=== PATIENT | male | born 1935 | race Caucasian/White ===

== ENCOUNTER 2020-10-30 11:22 | Emergency (ER) | payer MEDICARE, BC, SELFPAY ==
--- NOTE | ~2020-10-30 | XR_ITS ---
EXAMINATION: XR chest 1V CLINICAL INFORMATION: Reason for Exam dyspnea COMPARISON: None TECHNIQUE: XR chest 1V Tubes and lines: None Lungs and pleura: Mild infiltrate at left lower lobe. Heart and mediastinum: The mediastinum is within normal limits.. Bones/soft tissue: Skeletal structures included are normal for patient's age. XR/XR chest 1V IMPRESSION: Mild interstitial infiltrate left lower lobe.
[2020-10-30 11:31] VITALS: BP 162/85; PULSE 83; RESP 20; TEMP 37.7; O2SAT 93; BMI 37.4
--- NOTE | 2020-10-30 11:51 | ECG_ITS ---
Test Reason : UPPER RESPIRATORY Blood Pressure : / mmHG Vent. Rate : 069 BPM Atrial Rate : 069 BPM P-R Int : 158 ms QRS Dur : 154 ms QT Int : 428 ms P-R-T Axes : 000 -86 017 degrees QTc Int : 458 ms Atrial fibrillation Right bundle branch block Left anterior fascicular block Bifascicular block Abnormal ECG No previous ECGs available Referred By: Sindy Mendez Electronically Signed By:POORNIMA ESPINOZA
--- NOTE | 2020-10-30 11:54 | ED_ITS ---
HPI - URI/Sore Throat General Chief Complaint: Upper Respiratory Symptoms Stated Complaint: covid + , fatigue, body ache Time Seen by Provider: 10/30/20 11:50 Source: patient Mode of arrival: ambulatory Limitations: no limitations History of Present Illness HPI Narrative: patient is unvaccinated MD elicited complaint: fever, cough, rhinorrhea and nasal congestion Onset (ago): day(s) (3) Consistency: constant and progressively worsening Severity: moderate Description of mucous: clear Able to tolerate fluids by mouth: Yes Exacerbating factors: exertion Relieving factors: nothing Context: other (went to [facility] today COVID positive) Associated symptoms: chills, myalgias, rhinorrhea, nasal congestion, cough and shortness of breath Treatments prior to arrival: none Related Data Previous Rx's Medication Instructions Recorded apixaban 5 mg tablet (Eliquis) 5 mg PO BID #60 tab 10/30/20 azithromycin 500 mg tablet See Rx Instructions .ROUTE 10/30/20 .COMPLEX #6 tab Allergies Allergy/AdvReac Type Severity Reaction Status Date / Time No Known Allergies Allergy Unverified 11/26/19 15:55 [No Known Allergies*] Review of Systems Review of Systems: Constitutional : No Weight loss, No Fever, pos Chills, pos Fatigue, pos Malaise ENT/Mouth : No sore throat, No Rhinorrhea Eyes: No Eye Pain, No Swelling, No Redness Cardiovascular : No Chest Pain, pos SOB, pos Dyspnea on Exertion, No Orthopnea, No Edema, No Palpitations Respiratory : pos Cough, pos Sputum, No Wheezing Gastrointestinal : No Nausea, No Vomiting, No Diarrhea, No Constipation, No ab dominal Pain, No Hematochezia, No Melena Genitourinary : No Dysuria, No Urinary Frequency, No Hematuria, Musculoskeletal : No joint pain, No Myalgias, No Joint Swelling Skin : No Skin Lesions, No rash Neuro : No Weakness, No Numbness, No Dizziness, No Headache Psych : No Anxiety/Panic, No Depression Heme/Lymph: No Bruising, No Bleeding,No Lymphadenopathy Endocrine : No Polyuria, No Polydipsia All other systems reviewed and are negative [facility] Past Medical History Medical History (Updated 10/30/20 @ 14:10 by Sindy Mendez DO) HTN (hypertension) Stroke Social History Social History (Updated 10/30/20 @ 12:08 by Sindy Mendez DO) Patient Tobacco Use Status: Never used Tobacco Advance Directives: No Advance Directives Information Provided: No Physical Exam Vital Signs: Vital Signs: Last Vital Signs Temp 100.2 F 10/30/20 14:05 Pulse 60 10/30/20 14:05 Resp 22 H 10/30/20 14:05 BP 136/71 10/30/20 14:05 Pulse Ox 94 10/30/20 14:48 Body Mass Index 37.4 Appearance: Alert. Oriented X3. No acute distress. Eyes: Pupils equal, round and reactive to light. ENT: Pharynx normal. Neck: Normal inspection. Neck supple. CVS: Normal heart rate and rhythm. Pulses normal. Respiratory: No respiratory distress. Breath sounds with some rhonchi, coarse cough noted Abdomen: Soft and nontender. Skin: Skin warm and dry. Normal skin color. Normal skin turgor. Extremities: No lower extremity edema. No calf ttp Neuro: Oriented X 3. No motor deficit. No sensory deficit. Course Course Course Narrative: possible monoclonal antibody treatments at [facility] [place]m involved, new onset afib no CP he is rate controlled and already on ASA / Plavix - does not know if he has prior afib his best bet with afib might be monoclonal treatments given he is not O2 dependent at this time, pending call back from pulmonology to see if they can treat him [facility] [place] closed, repeat troponin pending, plan to possibly observe or hold in order to get patient appointment if he does not need O2 lowest O2 sat 94% on RA with ambulation trial, has not needed O2 plan to call [facility] [place] for monoclonal therapy , Case management consult also ordered , other contact is daughter Jelena [phone] [facility] number trop not above delta, will start him on eliquis given chadsvasc 5 - the patient denies any bloody or black stools no prior issues with bleeding MDM - URI/Sore Throat MDM Narrative Medical decision making narrative: 85 yo male with HTN, prior stroke, has not felt well since Saturday c/o URI symptoms tested positive at [facility] for COVID. He is not vaccinated. At this time will obtain labs, CXR, monitor O2 sats with ambulation trial. The patient is suprised there is no medication to fix this. Lab Data Result diagrams: 10/30/20 13:02 10/30/20 13:02 Labs: Lab Results 10/30/20 10/30/20 10/30/20 Range/Units 13:02 13:02 13:02 WBC 4.6 L (4.8-10.8) X10*3/uL RBC 5.01 (4.60-5.80) X10*6/uL Hgb 15.8 (14.0-18.0) g/dl Hct 45.8 (42-52) % MCV 91.4 (80-98) fL MCH 31.5 (27.0-33.0) pg MCHC 34.5 (31.0-36.0) g/dl RDW 13.2 (11.0-16.0) % Plt Count 112 L (160-400) X10*3/uL MPV 9.2 L (9.4-12.4) fL Immature Gran % (Auto) 0.2 (0.0-0.4) % Neut % (Auto) 83.0 H (45-73) % Lymph % (Auto) 8.3 L (20-40) % [place] % (Auto) 8.5 (2-11) % Eos % (Auto) 0.0 (0-4) % Baso % (Auto) 0.0 (0-2) % Lymph # (Auto) 0.4 L (1.2-4.9) X10*3/uL [place] # (Auto) 0.4 (0.1-1.2) X10*3/uL Eos # (Auto) 0.0 (0.0-0.4) X10*3/uL Baso # (Auto) 0.0 (0.0-0.2) X10*3/uL Abs Immat Gran (auto) 0.01 (0.00-0.03) X10*3/uL Absolute Neuts (auto) 3.8 (2.0-8.3) X10*3/uL Absolute Nucleated RBC 0.000 (0.0-0.012) X10*3/uL Nucleated RBC % (auto) 0.0 (0.0-0.2) /100WBC D-Dimer 229 NG/ML Sodium 137 (135-145) mmol/L Potassium 4.0 (3.3-5.1) mmol/L Chloride 96 (96-108) mmol/L Carbon Dioxide 30 H (22-29) mmol/L Anion Gap 15 (12-20) BUN 15 (9-16) mg/dL Creatinine 1.00 (0.5-1.4) mg/dL Estim Creat Clear Calc 75.9 Estimated GFR > 60 Random Glucose 103 (60-115) mg/dL Lactic Acid (0.5-2.0) mmol/L Calcium 9.2 (8.4-10.2) mg/dL Magnesium 2.0 (1.6-2.6) mg/dL Ferritin 1073 H (20-250) ng/mL Total Bilirubin 0.7 (0.0-1.0) mg/dL Direct Bilirubin 0.3 (0.0-0.5) mg/dL AST 43 H (5-37) U/L ALT 26 (0-40) U/L Alkaline Phosphatase 68 (39-117) U/L Lactate Dehydrogenase 278 H (118-273) U/L Total Creatine Kinase 397 H (38-174) U/L Troponin I High Sens (<3.5-35.0) ng/L C-Reactive Protein 2.41 H (< or = 0.50) mg/dL B-Natriuretic Peptide (<100) pg/mL Total Protein 7.2 (6.5-8.0) g/dL Albumin 4.4 (3.5-5.0) g/dL Procalcitonin ng/mL COVID-19 (SCAR) (Negative) COVID-19 Clin Com 10/30/20 10/30/20 10/30/20 Range/Units 13:02 13:02 13:02 WBC (4.8-10.8) X10*3/uL RBC (4.60-5.80) X10*6/uL Hgb (14.0-18.0) g/dl Hct (42-52) % MCV (80-98) fL MCH (27.0-33.0) pg MCHC (31.0-36.0) g/dl RDW (11.0-16.0) % Plt Count (160-400) X10*3/uL MPV (9.4-12.4) fL Immature Gran % (Auto) (0.0-0.4) % Neut % (Auto) (45-73) % Lymph % (Auto) (20-40) % [place] % (Auto) (2-11) % Eos % (Auto) (0-4) % Baso % (Auto) (0-2) % Lymph # (Auto) (1.2-4.9) X10*3/uL [place] # (Auto) (0.1-1.2) X10*3/uL Eos # (Auto) (0.0-0.4) X10*3/uL Baso # (Auto) (0.0-0.2) X10*3/uL Abs Immat Gran (auto) (0.00-0.03) X10*3/uL Absolute Neuts (auto) (2.0-8.3) X10*3/uL Absolute Nucleated RBC (0.0-0.012) X10*3/uL Nucleated RBC % (auto) (0.0-0.2) /100WBC D-Dimer NG/ML Sodium (135-145) mmol/L Potassium (3.3-5.1) mmol/L Chloride (96-108) mmol/L Carbon Dioxide (22-29) mmol/L Anion Gap (12-20) BUN (9-16) mg/dL Creatinine (0.5-1.4) mg/dL Estim Creat Clear Calc Estimated GFR Random Glucose (60-115) mg/dL Lactic Acid 1.2 (0.5-2.0) mmol/L Calcium (8.4-10.2) mg/dL Magnesium (1.6-2.6) mg/dL Ferritin (20-250) ng/mL Total Bilirubin (0.0-1.0) mg/dL Direct Bilirubin (0.0-0.5) mg/dL AST (5-37) U/L ALT (0-40) U/L Alkaline Phosphatase (39-117) U/L Lactate Dehydrogenase (118-273) U/L Total Creatine Kinase (38-174) U/L Troponin I High Sens 37.7 H* (<3.5-35.0) ng/L C-Reactive Protein (< or = 0.50) mg/dL B-Natriuretic Peptide 88 (<100) pg/mL Total Protein (6.5-8.0) g/dL Albumin (3.5-5.0) g/dL Procalcitonin 0.03 ng/mL COVID-19 (SCAR) (Negative) COVID-19 Clin Com 10/30/20 10/30/20 Range/Units 13:02 15:52 WBC (4.8-10.8) X10*3/uL RBC (4.60-5.80) X10*6/uL Hgb (14.0-18.0) g/dl Hct (42-52) % MCV (80-98) fL MCH (27.0-33.0) pg MCHC (31.0-36.0) g/dl RDW (11.0-16.0) % Plt Count (160-400) X10*3/uL MPV (9.4-12.4) fL Immature Gran % (Auto) (0.0-0.4) % Neut % (Auto) (45-73) % Lymph % (Auto) (20-40) % [place] % (Auto) (2-11) % Eos % (Auto) (0-4) % Baso % (Auto) (0-2) % Lymph # (Auto) (1.2-4.9) X10*3/uL [place] # (Auto) (0.1-1.2) X10*3/uL Eos # (Auto) (0.0-0.4) X10*3/uL Baso # (Auto) (0.0-0.2) X10*3/uL Abs Immat Gran (auto) (0.00-0.03) X10*3/uL Absolute Neuts (auto) (2.0-8.3) X10*3/uL Absolute Nucleated RBC (0.0-0.012) X10*3/uL Nucleated RBC % (auto) (0.0-0.2) /100WBC D-Dimer NG/ML Sodium (135-145) mmol/L Potassium (3.3-5.1) mmol/L Chloride (96-108) mmol/L Carbon Dioxide (22-29) mmol/L Anion Gap (12-20) BUN (9-16) mg/dL Creatinine (0.5-1.4) mg/dL Estim Creat Clear Calc Estimated GFR Random Glucose (60-115) mg/dL Lactic Acid (0.5-2.0) mmol/L Calcium (8.4-10.2) mg/dL Magnesium (1.6-2.6) mg/dL Ferritin (20-250) ng/mL Total Bilirubin (0.0-1.0) mg/dL Direct Bilirubin (0.0-0.5) mg/dL AST (5-37) U/L ALT (0-40) U/L Alkaline Phosphatase (39-117) U/L Lactate Dehydrogenase (118-273) U/L Total Creatine Kinase (38-174) U/L Troponin I High Sens 51.7 H* (<3.5-35.0) ng/L C-Reactive Protein (< or = 0.50) mg/dL B-Natriuretic Peptide (<100) pg/mL Total Protein (6.5-8.0) g/dL Albumin (3.5-5.0) g/dL Procalcitonin ng/mL COVID-19 (SCAR) Positive A (Negative) COVID-19 Clin Com See Note ECG Data Attestation: I personally reviewed and interpreted this ECG as follows: ECG interpretation date: 10/30/20 ECG interpretation time: 13:13 Interpretation: Rate: 65 Rhythm: afib [place]: left Normal P waves. Normal THOMAS. RBBB ST T wave : no SUNNY, normal qTC: normal prior studies: no prior The study has been interpreted contemporaneously by me. . Discharge Plan Discharge Clinical Impression: COVID-19 Atrial fibrillation Qualifiers: Atrial fibrillation type: unspecified Qualified Code(s): I48.91 - Unspecified atrial fibrillation Patient Disposition: Home, Self-Care Instructions: A-fib (Atrial Fibrillation) (ED), COVID-19 (Coronavirus Disease 2019) (ED) Additional Instructions: STOP ASPIRIN AND PLAVIX I will call you tomorrow to set up treatment at [facility] Monoclonal Antibody [facility] if you become very short of breath please come back to the ED Prescriptions: New azithromycin 500 mg tablet See Rx Instructions .ROUTE .COMPLEX Qty: 6 RF: 0 Eliquis 5 mg tablet 5 mg PO BID Qty: 60 RF: 0 Referrals: Joselito Reynoso [Primary Care Provider] - 1 week (after COVID care completed. Will need workup for atrial fibrillation )
[2020-10-30 13:11] LABS: MANUAL DIFF FLAG NO
--- NOTE | 2020-10-30 13:13 | ECG_ITS ---
Test Reason : REPEAT Blood Pressure : / mmHG Vent. Rate : 065 BPM Atrial Rate : 326 BPM P-R Int : 000 ms QRS Dur : 148 ms QT Int : 420 ms P-R-T Axes : 000 -80 029 degrees QTc Int : 436 ms Atrial fibrillation Right bundle branch block Left anterior fascicular block Bifascicular block Abnormal ECG When compared with ECG of 30-OCT-2020 12:46, No significant change was found Referred By: Sindy Mendez Electronically Signed By:POORNIMA ESPINOZA
[2020-10-30 13:19] LABS: Hematocrit 45.8 % (42-52); Hemoglobin 15.8 g/dl (14.0-18.0); Imm Gran Abs Auto 0.01 X10*3/uL (0.00-0.03); Imm Gran Pct Auto 0.2 % (0.0-0.4); Lymphocytes Absolute Auto 0.4 X10*3/uL (1.2-4.9); Lymphocytes Percent Auto 8.3 % (20-40); Mean Corpuscular HGB Conc 34.5 g/dl (31.0-36.0); Mean Corpuscular Hemoglobin 31.5 pg (27.0-33.0); Mean Corpuscular Volume 91.4 fL (80-98); Mean Platelet Volume 9.2 fL (9.4-12.4); Monocytes Absolute Auto 0.4 X10*3/uL (0.1-1.2); Monocytes Percent Auto 8.5 % (2-11); Neutrophils Absolute Auto 3.8 X10*3/uL (2.0-8.3); Platelet Count 112 X10*3/uL (160-400); Red Blood Count 5.01 X10*6/uL (4.60-5.80); Red Cell Distribution Width 13.2 % (11.0-16.0); White Blood Count 4.6 X10*3/uL (4.8-10.8)
[2020-10-30 13:23] LABS: COVID-19 Test Positive (Negative)
[2020-10-30 13:29] LABS: D Dimer 229 NG/ML
[2020-10-30] MEDS: Acetaminophen 325 MG TABLET 650 MG PO (13:29)
[2020-10-30] MEDS: dexAMETHasone sod phosphate 4 MG/ML VIAL 6 MG IVPUSH (13:29)
[2020-10-30 13:35] LABS: Lactic Acid 1.2 mmol/L (0.5-2.0)
[2020-10-30 13:43] LABS: Alanine Aminotransferase 26 U/L (0-40); Albumin Level 4.4 g/dL (3.5-5.0); Alkaline Phosphatase 68 U/L (39-117); Anion Gap 15 (12-20); Aspartate Amino Transferase 43 U/L (5-37); Bilirubin Direct 0.3 mg/dL (0.0-0.5); Bilirubin Total 0.7 mg/dL (0.0-1.0); Blood Urea Nitrogen 15 mg/dL (9-16); C Reactive Protein 2.41 mg/dL (< or = 0.50); Calcium 9.2 mg/dL (8.4-10.2); Carbon Dioxide 30 mmol/L (22-29); Chloride 96 mmol/L (96-108); Creatinine Clr Calc Pharmacy 75.9; Estimated Glomerular Filt Rate > 60; Glucose Random 103 mg/dL (60-115); Lactate Dehydrogenase 278 U/L (118-273); Sodium 137 mmol/L (135-145); Total Protein 7.2 g/dL (6.5-8.0)
[2020-10-30 13:44] LABS: B Type Natriuretic Peptide 88 pg/mL (<100); Troponin-I High Sensitivity 37.7 ng/L (<3.5-35.0)
[2020-10-30 13:59] LABS: Procalcitonin 0.03 ng/mL
[2020-10-30 14:00] LABS: Ferritin 1073 ng/mL (20-250)
[2020-10-30 14:05] VITALS: BP 136/71; PULSE 60; RESP 22; TEMP 37.9; O2SAT 93
[2020-10-30 14:48] VITALS: O2SAT 94
[2020-10-30 16:30] LABS: Troponin-I High Sensitivity 51.7 ng/L (<3.5-35.0)
[2020-10-30 19:14] VITALS: BP 137/72; PULSE 58; RESP 18; O2SAT 94
[2020-10-30] MEDS: Apixaban 5 MG TABLET PO (19:15)
--- NOTE | 2020-10-30 19:43 | PC.NURSE ---
DAUGHTER HAS BEEN IN WR READY TO TAKE PT HOME ONCE READY FOR DISCHARGE. INSTRUCTIONS EXPLAINED TO BOTH PT AND DAUGHTER. DAUGHTER TESTED NEGATIVE TODAY, SHE DID HAVE VACCINE X 2. BOTH UNDERSTAND TO SET UP APPT AT [facility] FOR ANTIBODY TREATMENT, THEY WILL RECEIVE A CALL. STOP TAKING ASA AND PLAVIX, START TAKING ELIQUIS AND AZITHROMYCIN. RETURN TO THE ER FOR INCREASED DYSPNEA. RECOMMEND AN SPO2 MONITOR TO MEASURE SPO2, RETURN IF BELOW 90%.
== END 2020-10-30 19:47 | disposition home or self-care (01) ==
PROVIDERS: Emergency Provider Emergency Medicine; PCP Hospitalist
DX: U07.1 COVID-19 (principal); M79.10 Myalgia, unspecified site; R05 Cough; I48.91 Unspecified atrial fibrillation; I10 Essential (primary) hypertension; Z79.899 Other long term (current) drug therapy
CPT/HCPCS: 36415; 71045; 80048; 80076; 82550; 82728; 83605; 83615; 83735; 83880; 84145; 84484; 85025; 85379; 86140; 87040; 87635; 93005; 96374; 99284; J1100

== ENCOUNTER 2024-09-22 06:48 | Inpatient (IN) | payer MEDICARE, BC, SELFPAY ==
[2024-09-22] VITALS (14 sets, daily range): BP systolic 105–181; BP diastolic 38–99; PULSE 32–65; RESP 14–20; TEMP 36.2–36.9; O2SAT 93–98; BMI 36.9
--- NOTE | ~2024-09-22 | XR_ITS ---
EXAMINATION: XR CHEST CLINICAL INFORMATION: dizzy COMPARISON: October 30, 2020 TECHNIQUE: Frontal view of the chest was obtained. FINDINGS: No focal lung consolidation or evidence of pulmonary edema. Cardiomediastinal silhouette is within normal limits. Osseous structures appear intact. XR/XR chest 1V IMPRESSION: No acute cardiopulmonary process. Electronically signed by: Nelida Arredondo MD 09/22/2024 07:48 AM EDT
--- NOTE | ~2024-09-22 | XR_ITS ---
EXAMINATION: XR CHEST CLINICAL INFORMATION: s/p pacemaker implant. R/o pneumothorax. COMPARISON: Prior day. TECHNIQUE: Frontal view of the chest was obtained. FINDINGS: Left-sided dual-lead pacemaker has been placed. Leads are seen in the right atrium and right ventricle. There is mild cardiac enlargement. Mediastinal and hilar contours are normal. The lungs are clear bilaterally. No pneumothorax or effusion. No focal osseous or soft tissue abnormality. XR/XR chest 1V IMPRESSION: 1. Placement of left-sided dual-lead pacer. No pneumothorax. 2. Mild cardiac enlargement. 3. No active pulmonary disease. Electronically signed by: Amandeep Borges MD 09/23/2024 04:01 PM EDT
--- NOTE | 2024-09-22 07:01 | ECG_ITS ---
Test Reason : dizziness Blood Pressure : */* mmHG Vent. Rate : 53 BPM Atrial Rate : * BPM P-R Int : * ms QRS Dur : 160 ms QT Int : 448 ms P-R-T Axes : * -75 58 degrees QTcB Int : 420 ms Atrial fibrillation with slow ventricular response Right bundle branch block Left anterior fascicular block Bifascicular block Abnormal ECG When compared with ECG of 30-Oct-2020 13:05, No significant change was found Referred By: Generic ED Physician Electronically Signed By: CINDY BROWN
[2024-09-22 07:32] LABS: MANUAL DIFF FLAG NO
[2024-09-22 07:33] LABS: Hematocrit 45.7 % (42.0-52.0); Hemoglobin 15.7 g/dl (14.0-18.0); Imm Gran Abs Auto 0.01 X10*3/uL (0.00-0.03); Imm Gran Pct Auto 0.2 % (0.0-0.4); Lymphocytes Absolute Auto 1.0 X10*3/uL (1.2-4.9); Mean Corpuscular HGB Conc 34.4 g/dl (31.0-36.0); Mean Corpuscular Hemoglobin 31.8 pg (27.0-33.0); Mean Corpuscular Volume 92.7 fL (80.0-98.0); NRBC Abs Auto 0.000 X10*3/uL (0.0-0.012); NRBC Pct Auto 0.0 /100WBC (0.0-0.2); Platelet Count 145 X10*3/uL (160-400); Red Blood Count 4.93 X10*6/uL (4.60-5.80); White Blood Count 6.2 X10*3/uL (4.8-10.8)
[2024-09-22 07:35] LABS: Appearance Urine Clear; Glucose Urine UA Negative (Negative); PH 5.0 (5.0-9.0); Specific Gravity - Urine 1.020 (1.005-1.025)
[2024-09-22 07:43] LABS: INTERNATIONAL NORM RATIO 1.3 (0.9-1.1); Prothrombin Time 14.4 SEC (10.9-12.4)
[2024-09-22 07:50] LABS: Alanine Aminotransferase 26 U/L (0-40); Albumin Level 4.3 g/dL (3.5-5.0); Alkaline Phosphatase 68 U/L (39-117); Anion Gap 14 (12-20); Aspartate Amino Transferase 35 U/L (5-37); Blood Urea Nitrogen 20 mg/dL (9-16); Calcium 9.3 mg/dL (8.4-10.2); Carbon Dioxide 23 mmol/L (22-29); Chloride 108 mmol/L (96-108); Creatinine Clr Calc Pharmacy 64.1; Estimated Glomerular Filt Rate > 60; Potassium 4.3 mmol/L (3.3-5.1); Sodium 141 mmol/L (135-145); Total Protein 6.7 g/dL (6.5-8.0)
[2024-09-22 07:57] LABS: Troponin-I High Sensitivity 19.4 ng/L (<3.5-35.0)
--- NOTE | 2024-09-22 08:02 | PC.NURSE ---
pt is alert and oriented, skin appropriate for ethnicity, respirations even and unlabored, ls clear, pt denies felling dizzy or chest pain at this time, lower extremities swollen/elephant like- which according to the pt that is his baseline, pt reports that around 0600 went to [facility] picked up a couple of bags of mulch then put them in his truck started to drive away and what the pt reports that his vision started to get tunnel vision/and kept getting darker and darker and felt like he was going to pass out, the pt pulled over and parked his truck and closed his eyes then when he opened them back again the vision slowly got extractions technologist and extractions technologist again, pt states that he is not exactly sure if he totally passed out or not, no viable facial droop, speech clear, hand grasp strong and equal, pt put on the monitor and it was showing a-fib but with slow rate ranging from 50's-low 40's, pt does have hx of a-fib and currently on Eliquis , Bp stable
--- NOTE | 2024-09-22 08:25 | ED.GENADULT ---
HPI - General Adult General Chief complaint: Dizziness Stated complaint: 'blacking out' multiple times Time Seen by Provider: 09/22/24 08:24 History of Present Illness ED Provider: Amie CRANE narrative: The patient is an 89-year-old male with a history of chronic atrial fibrillation who was on apixaban but who was not on any rate control medications. Yesterday the patient had a sense of lightheadedness and near-syncope. The patient has been at [facility]. He had loaded 6 bags of mulch into the back of his pickup truck. The bags may have weight as much as 40 lb. He says that moving the bags did not cause any chest pain or shortness of breath. He says after he got into his truck however he was going to drive when he started to feel like his vision was going dark and he felt as if he might pass out. These symptoms lasted less than a minute and then he recovered. He then finished his trans actions at [facility] and drove home. This morning he decided he should come to the hospital for evaluation of this episode. The patient has never had an episode like this before. He has no history of stroke or IA. no fever, sweats, chills. He has chronic lower extremity edema. His medications are apixaban, levothyroxine, simvastatin, and ramipril. His primary care doctor is Dr. Primo Chicas at [facility]. Related Data Previous Rx's ?Medication ?Instructions ?Recorded apixaban 5 mg tablet (Eliquis) 5 mg PO BID #60 tabs 10/30/20 azithromycin 500 mg tablet See Rx Instructions PO .COMPLEX #6 10/30/20 tabs Allergies Allergy/AdvReac Type Severity Reaction Status Date / Time No Known Allergies (No Known Allergy Unverified 09/22/24 06:59 Allergies*) Review of Systems Review of Systems: Yes all other systems are reviewed and are negative [facility] Past Medical History Medical History (Updated 09/22/24 @ 17:05 by Jon Holloway MD) Stroke HTN (hypertension) Family History Family History (Updated 09/22/24 @ 09:19 by James Mcintosh MD) Father No problems noted. Mother No problems noted. Social History Social History (Updated 10/30/20 @ 12:08 by Brandi Mendez DO) Alcohol intake: current Alcohol intake frequency: a few times a month Patient Tobacco Use Status: Never used Tobacco Smoked in Last 30 Days: No Use of substances other than those prescribed or required for medical reasons: No Advance Directives: No Advance Directives Information Provided: Yes Do you have a plan to hurt others: No Plan Physical Exam ED Vital Signs: Vital Signs - 24 hr 09/22/24 06:55 09/22/24 07:53 09/22/24 07:57 Temperature 97.1 F Pulse Rate 65 41 L Pulse Rate [Monitor] 41 L Respiratory Rate 16 20 Blood Pressure 161/64 H 152/52 H Pulse Oximetry 98 97 Oxygen Delivery Method Room Air Room Air 09/22/24 08:19 09/22/24 08:26 09/22/24 08:27 Temperature Pulse Rate 40 L 41 L 37 L Pulse Rate [Monitor] Respiratory Rate 16 16 Blood Pressure 161/50 H 147/64 H Pulse Oximetry 96 98 Oxygen Delivery Method Room Air Room Air 09/22/24 10:20 09/22/24 10:53 09/22/24 13:00 Temperature 98.5 F Pulse Rate 32 L 44 L 60 Pulse Rate [Monitor] Respiratory Rate 20 16 14 Blood Pressure 159/80 H 181/99 H 169/87 H Pulse Oximetry 96 95 93 Oxygen Delivery Method Room Air Room Air Room Air 09/22/24 14:00 09/22/24 17:46 Temperature 97.9 F Pulse Rate 58 60 Pulse Rate [Monitor] Respiratory Rate 15 Blood Pressure 144/87 H 149/72 H Pulse Oximetry 97 Oxygen Delivery Method Room Air BMI result Body Mass Index 36.9 Const Other: The patient is awake and alert. He has a large 89-year-old male who looks younger than his age. He has significantly edematous lower extremities that look quite chronic. Otherwise he does not seem frail or in distress in any way. Orientation/consciousness: patient oriented x3 HENMT Other: The face is symmetrical. ?Mucous membranes moist. Eyes Other: Pupils are round equal, conjunctivae are clear, extraocular movements intact Neck Neck: Yes normal visual inspection, Yes full ROM and Yes no JVD Resp Effort & Inspection: normal respiratory effort Auscultation: clear to auscultation bilaterally Cardio Other: The patient was bradycardic with a an irregular rate and rhythm. No murmur heard. GI Other: Abdomen is soft and nontender Skin Other: The skin is dry and unremarkable Neuro General: patient oriented x3, gait normal, tone normal, moves all extremities, no focal motor deficits and CN's II-XI intact bilaterally Extrem Other: The patient is fairly thick, chronic looking edema to both lower legs. Medical Decision Making Medical Decision Making [facility] Narrative: The patient is an 89-year-old male with a history of atrial fibrillation. He is on apixaban but he is not on any rate control medications. He has had atrial fibrillation for about 4 years. 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 The patient yesterday had an episode of near-syncope after exerting himself by lifting heavy bags of mulch into his pickup truck at [employer]. The patient had no exertional chest pain or shortness of breath but soon after he finished the exertion he has got into his pickup truck and felt his vision went dark and felt as if he was going to pass out. These symptoms lasted less than a minute. At 1st I thought this had happened early this morning but later his son told me this actually happened yesterday. The patient is in slow AFib at the emergency room here this morning. His blood pressures are stable. My suspicion is that he probably had an episode of significant bradycardia after his exertion yesterday. I consulted Dr. Mcintosh and we agreed that the patient probably needs pacemaker. Dr. Mcintosh contacted [facility] and the patient has been accepted with the plan for transfer to [facility]. We will hold the patient's apixaban. The patient has been bradycardic but hemodynamically stable otherwise. He has looked well and has been asymptomatic. [facility] has accepted the patient in principle but no bed is yet available. The patient will therefore be held in the emergency room until a bed is available for transfer. The accepting physician at [facility] is Dr. Florecita Khoury. At this point the patient will stay in the ED here until a bed is available at [facility]. Lab Data 09/22/24 07:28 09/22/24 07:27 Labs: Lab Results 09/22/24 09/22/24 09/22/24 Range/Units 07: 07:28 09:29 WBC 6.2 (4.8-10.8) X10*3/uL RBC 4.93 (4.60-5.80) X10*6/uL Hgb 15.7 (14.0-18.0) g/dl Hct 45.7 (42.0-52.0) % MCV 92.7 (80.0-98.0) fL MCH 31.8 (27.0-33.0) pg MCHC 34.4 (31.0-36.0) g/dl RDW 13.3 (11.0-16.0) % Plt Count 145 L (160-400) X10*3/uL MPV 9.5 (9.4-12.4) fL Immature Gran % (Auto) 0.2 (0.0-0.4) % Neut % (Auto) 73.0 (45-73) % Lymph % (Auto) 15.3 L (20-40) % [place] % (Auto) 9.7 (2-11) % Eos % (Auto) 1.3 (0-4) % Baso % (Auto) 0.5 (0-2) % Lymph # (Auto) 1.0 L (1.2-4.9) X10*3/uL [place] # (Auto) 0.6 (0.1-1.2) X10*3/uL Eos # (Auto) 0.1 (0.0-0.4) X10*3/uL Baso # (Auto) 0.0 (0.0-0.2) X10*3/uL Abs Immat Gran (auto) 0.01 (0.00-0.03) X10*3/uL Absolute Neuts (auto) 4.5 (2.0-8.3) x10*3/uL Absolute Nucleated RBC 0.000 (0.0-0.012) X10*3/uL Nucleated RBC % (auto) 0.0 (0.0-0.2) /100WBC PT 14.4 H (10.9-12.4) SEC INR 1.3 H (0.9-1.1) Sodium 141 (135-145) mmol/L Potassium 4.3 (3.3-5.1) mmol/L Chloride 108 (96-108) mmol/L Carbon Dioxide 23 (22-29) mmol/L Anion Gap 14 (12-20) BUN 20 H (9-16) mg/dL Creatinine 1.09 (0.5-1.4) mg/dL Estim Creat Clear Calc 64.1 Estimated GFR > 60 Random Glucose 125 H (60-115) mg/dL Calcium 9.3 (8.4-10.2) mg/dL Total Bilirubin 0.9 (0.0-1.0) mg/dL Direct Bilirubin 0.4 (0.0-0.5) mg/dL AST 35 (5-37) U/L ALT 26 (0-40) U/L Alkaline Phosphatase 68 (39-117) U/L Troponin I High Sens 19.4 16.6 (<3.5-35.0) ng/L B-Natriuretic Peptide 490 H (<100) pg/mL Total Protein 6.7 (6.5-8.0) g/dL Albumin 4.3 (3.5-5.0) g/dL Urine Color Yellow Urine Appearance Clear Urine pH 5.0 (5.0-9.0) Ur Specific [place] 1.020 (1.005-1.025) Urine Protein Negative (Neg-Trace) mg/dL Urine Glucose (UA) Negative (Negative) mg/dL Urine Ketones Negative (Negative) mg/dL Urine Blood Negative (Negative) Urine Nitrite Negative (Negative) Ur Leukocyte Esterase Negative (Negative) Urine RBC 0-2 (0-2) /HPF Urine WBC 0-5 (0-5) /HPF Ur Squamous Epith Cells 0-2 (0-2) /HPF Urine Bacteria None Seen (None Seen) Hyaline Casts 0-2 (0-2) /LPF Independent Interpretation I performed an independent interpretation of an: EKG Interpretation: EKG at 0707 shows atrial fibrillation with a slow ventricular response at 53 beats per minute. Discharge Plan Discharge Clinical Impression: Near syncope, Atrial fibrillation with slow ventricular response Prescriptions: No Action azithromycin 500 mg tablet See Rx Instructions .ROUTE .COMPLEX Qty: 6 0RF Rx Instructions: take 500 mg today (day 1), then 250 mg for 4 days (days 2-5) Eliquis 5 mg tablet 5 mg PO BID Qty: 60 0RF Print Language: Occitan
--- NOTE | 2024-09-22 09:16 | PM.CNCAR ---
History of Present Illness History of Present Illness Date of Service: 09/22/24 Chief complaint: 'blacking out' multiple times Narrative: This is a cardiology consultation regarding presyncope. Patient has a history of atrial fibrillation going back at least for the last 4 years. EKG from 2020 has atrial fibrillation. He has been followed up with primary care for this. He is not on any rate control medications and most likely reflects underlying conduction system disease. He is on Eliquis for anticoagulation. Today, he was picking up heavy much from [employer]. He believes they were close to 40 lb or so per back. Then he was trying to drive up to the counter to pay and in that setting, he became very dizzy and thought he was going to pass out. He states that he actually thought he was going to in the parking lot. Subsequently, it seems he came around. Denies any true syncopal episode/loss of consciousness. Denies any chest pains. Currently, he states he feels okay. After arrival to the ER, he has been in atrial fibrillation with slow issue rates in the 40s and some 30s. However, when it was in the room, it was mostly in the 40s. He states he is otherwise quite functional without any major limitations. Review of Systems Review of Systems: Yes all other systems are reviewed and are negative Constitutional: Constitutional: Reports as per HPI and Reports no additional constitutional complaints Eyes: Eyes: Reports as per HPI and Denies no additional eye complaints ENT: Denies system reviewed and no additional complaints, except as documented and Reports as per HPI Cardiovascular: Cardiovascular: Reports as per HPI, Reports no additional cardiovascular complaints, Denies acrocyanosis, Denies cool extremities, Denies chest pain, Denies leg edema, Denies lightheadedness, Denies palpitations and Denies dyspnea Respiratory: Respiratory: Reports as per HPI, Denies no additional respiratory complaints and Denies dyspnea Gastrointestinal: Gastrointestinal: Reports as per HPI and Denies no additional gastrointestinal complaints Genitourinary: Genitourinary: Reports no additional male genitourinary complaints and Reports as per HPI Musculoskeletal: Musculoskeletal: Reports no additional musculoskeletal complaints and Reports as per HPI Integumentary/Breasts: Skin/Breast: Reports system reviewed and no additional complaints, except as docu Neurologic: Reports system reviewed and no additional complaints, except as documented and Reports as per HPI Psychiatric: Psychiatric: Reports no additional psychiatric complaints and Reports as per HPI Endocrine: Endocrine: Reports no additional endocrine complaints, Reports as per HPI and Denies palpitations Hematologic/Lymphatic: Hematologic/Lymphatic: Reports no additional hematologic/lymphatic complaints and Reports as per HPI Allergic/Immunologic: Allergic/Immunologic: Reports no additional allergic/immunologic complaints and Reports as per HPI [facility] Past Medical History Medical History (Updated 09/22/24 @ 09:20 by James Mcintosh MD) Stroke HTN (hypertension) Family History Family History Father No problems noted. Mother No problems noted. Social History Social History (Updated 10/30/20 @ 12:08 by Brandi Mendez DO) Alcohol intake: current Alcohol intake frequency: a few times a month Patient Tobacco Use Status: Never used Tobacco Smoked in Last 30 Days: No Use of substances other than those prescribed or required for medical reasons: No Advance Directives: No Advance Directives Information Provided: Yes Do you have a plan to hurt others: No Plan Meds Allergies Allergy/AdvReac Type Severity Reaction Status Date / Time No Known Allergies (No Known Allergy Unverified 09/22/24 06:59 Allergies*) Physical Exam Vital Signs: Vital Signs: Last Vital Signs Temp 97.1 F 09/22/24 06:55 Pulse 37 L 09/22/24 08:27 Resp 16 09/22/24 08:26 BP 147/64 H 09/22/24 08:26 Pulse Ox 98 09/22/24 08:26 O2 Del Method Room Air 09/22/24 08:26 BMI result Body Mass Index 36.9 Const: General: comfortable and no acute distress Orientation/consciousness: patient oriented x3 HEENT: Other: Unremarkable Head: Yes normal to inspection Neck: Neck: Yes normal visual inspection Chest: Chest palpation & inspection: normal inspection of the chest Resp: Auscultation: clear to auscultation bilaterally Cardio: Palpation: normal PMI Heart sounds: S1 normal heart sound present, S2 normal heart sound present, no gallops, no murmurs and no rubs GI: Palpation (GI): Soft to palpation Back/Spine/Pelvis: Other: unremarkable Skin: General skin exam: no rashes or lesions noted Neuro: General: patient oriented x3 Extrem: General: Yes normal to inspection Psych: Mental Status: mental status grossly normal Objective Labs and Meds 09/22/24 07:28 09/22/24 07:27 Lab results: Laboratory Results - last 24 hr 09/22/24 09/22/24 07:27 07:28 WBC 6.2 RBC 4.93 Hgb 15.7 Hct 45.7 MCV 92.7 MCH 31.8 MCHC 34.4 RDW 13.3 Plt Count 145 L MPV 9.5 Immature Gran % (Auto) 0.2 Neut % (Auto) 73.0 Lymph % (Auto) 15.3 L Kerr % (Auto) 9.7 Eos % (Auto) 1.3 Baso % (Auto) 0.5 Lymph # (Auto) 1.0 L Kerr # (Auto) 0.6 Eos # (Auto) 0.1 Baso # (Auto) 0.0 Abs Immat Gran (auto) 0.01 Absolute Neuts (auto) 4.5 Absolute Nucleated RBC 0.000 Nucleated RBC % (auto) 0.0 PT 14.4 H INR 1.3 H Sodium 141 Potassium 4.3 Chloride 108 Carbon Dioxide 23 Anion Gap 14 BUN 20 H Creatinine 1.09 Estim Creat Clear Calc 64.1 Estimated GFR > 60 Random Glucose 125 H Calcium 9.3 Total Bilirubin 0.9 Direct Bilirubin 0.4 AST 35 ALT 26 Alkaline Phosphatase 68 Troponin I High Sens 19.4 Total Protein 6.7 Albumin 4.3 Urine Color Yellow Urine Appearance Clear Urine pH 5.0 Ur Specific [place] 1.020 Urine Protein Negative Urine Glucose (UA) Negative Urine Ketones Negative Urine Blood Negative Urine Nitrite Negative Ur Leukocyte Esterase Negative Urine RBC 0-2 Urine WBC 0-5 Ur Squamous Epith Cells 0-2 Urine Bacteria None Seen Hyaline Casts 0-2 ECG Interpretation: EKG with atrial fibrillation at a rate of 53/Min. Right bundle-branch block with left anterior fascicular block. Rate is slightly slower compared to prior EKG from 2020. Imaging Radiologist's impression: Impressions Chest X-Ray 09/22/24 06:39 IMPRESSION: No acute cardiopulmonary process. Electronically signed by: Nelida Arredondo MD 09/22/2024 07:48 AM EDT Assessment and Plan (1) Atrial fibrillation with slow ventricular response: Status: Acute (2) Bifascicular block: Status: Acute (3) Pre-syncope: Status: Acute Plan High sensitivity troponin within range. Cardiac BNP pending. Overall, probable atrial fibrillation with slow response leading to presyncopal episode in the setting of strenuous physical exertion. Likely needs a permanent pacemaker. We will discuss with EP about this. If it cannot be done in [place], then we will need to be transferred to [facility]. Obtain echocardiogram for cardiac function. Discussed with the ER physician. Procedures Date of Service Date of Service: 09/22/24
[2024-09-22 09:38] LABS: B Type Natriuretic Peptide 490 pg/mL (<100)
[2024-09-22 10:01] LABS: Troponin-I High Sensitivity 16.6 ng/L (<3.5-35.0)
--- NOTE | 2024-09-22 10:51 | PC.NURSE ---
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 Pt seen by cardiology and is slotted for pacemaker today.
--- NOTE | 2024-09-22 12:00 | CA_ITS ---
Transthoracic Echocardiogram Patient (Last, First, Middle): Jerman Hernandez S Gender: Male Date of : 1935 Age: 89 Procedure Date: 09/22/2024 Procedure Type: Transthoracic Echocardiogram Location: ER Height: 185.42 cm Weight: 127.01 kg BSA: 2.48 m2 Heart Rate: bpm BP: 147 / 64 mmHg Cyber Forensic Specialist: Referring MD: James Mcintosh MD Symptoms: AFib, presyncope Study Quality: Fair/Adequate ECG Rhythm: Sinus Conclusions: - The left ventricular systolic function is normal. The calculated ejection fraction is 57% by biplane method. - No obvious valvular pathology seen on this study. Findings Left Ventricle Normal left ventricular cavity size. There is moderately increased left ventricular wall thickness. The left ventricular systolic function is normal. The calculated ejection fraction is 57% by biplane method. There is no evidence of regional wall motion abnormalities. Diastolic function is indeterminate on the basis of available data. Right Ventricle Normal right ventricular cavity size and systolic function. Atria The left atrium is mildly dilated. The right atrium is normal in size. Aortic Valve There is a normal trileaflet aortic valve. There is no aortic valve stenosis. There is no aortic valve regurgitation. Mitral Valve The mitral valve appears normal. There is trace mitral valve regurgitation. There is no mitral valve stenosis. Pulmonic Valve There is trace to mild pulmonic valve regurgitation. Tricuspid Valve There is trace tricuspid valve regurgitation. There is no evidence of pulmonary hypertension. Great Vessels The asc aorta is normal in size. Venous The inferior vena cava is normal in size and collapses less than 50% with inspiration. Pericardium/Pleural There is no evidence of pericardial effusion. Prior Study Comparison No prior study available for comparison. Recommendations, Care & Conclusions No obvious valvular pathology seen on this study. Measurements 2D Linear Measurements IVSd: 1.32 0.6-0.9/0.6-1.0 cm LVIDd: 5.05 3.9-5.3/4.2-5.9 cm LVIDd Index: 2.04 2.4-3.2/2.2-3.1 cm/m2 LVIDs: 3.11 2.0-3.6 cm LVPWd: 1.43 0.7-1.1 cm Ao Root: 3.70 2.1-3.5 cm LA Diam: 4.00 2.7-3.8/3.0-4.0 cm LAIDs Index: 1.61 1.5-2.3 cm/m2 LV Mass: 359.59 67-162/88-224 g LV Mass Index: 145.00 43-95/49-115 g/m2 LVOT Diam: 2.20 3.0+(-)1.3 cm 2D Systolic Function EF 4C: 57.60 >55% EF 2C: 54.70 >55% EF BiP: 57.20 >55% Mitral Valve MV Pk E: 0.71 MV PK A: 0.49 MV Decel Time: 207.00 E/A: 1.50 E'Lateral: 9.03 E'Medial: 3.81 E/E' Med: 18.70 E/E' Lat: 7.90 PHT: 61.00 MVA PHT: 3.61 Decel [place]: 3.44 Aortic Valve AoV Pk You: 1.32 AoV Mn You: 0.93 AoV VTI: 0.32 AoV Pk Grad: 7.00 Aov Mn Grad: 4.00 TWAN Cont.VTI: 2.38 LVOT LVOT Pk You: 0.84 LVOT Mn You: 0.54 LVOT VTI: 0.20 LVOT Pk Grad: 3.00 LVOT Mn Grad: 1.00 LVOT Diam: 2.20 LVOT Area: 3.80 Diastolic Function MV Pk E: 0.71 MV Pk A: 0.49 E/A: 1.50 E'Medial: 3.81 E/E' Med: 18.70 E' Laterial: 9.03 E/E' Lat: 7.90 Right Ventricle TAPSE (mm): 23.00 TVS' You: 12.00 Tricuspid Valve TR Pk You: 2.35 TR Pk Grad: 22.00 RA Press: 3.00 RVSP: 25.00 Great Vessels Aorta Ao Root-2D: 3.70 2.0-3.7 cm Ao Asc: 3.40 2.1-3.4 cm Pulmonary Valve PV Pk You: 1.00 Peak PV Grad: 4.00 Updated in Other Vendor System with Status of Final James Mcintosh MD electronically signed on 09/22/2024 3:33:29 PM with status of Final
[2024-09-23] VITALS (32 sets, daily range): BP systolic 108–231; BP diastolic 53–109; PULSE 49–88; RESP 14–21; TEMP 36.2–36.8; O2SAT 96–100; BMI 37.7
--- NOTE | 2024-09-23 | ECG_ITS ---
Test Reason : pacemaker Blood Pressure : */* mmHG Vent. Rate : 60 BPM Atrial Rate : 60 BPM P-R Int : 304 ms QRS Dur : 158 ms QT Int : 460 ms P-R-T Axes : * -80 50 degrees QTcB Int : 460 ms Atrial-paced rhythm with prolonged AV conduction Left axis deviation Right bundle branch block Abnormal ECG When compared with ECG of 23-Sep-2024 09:36, Electronic atrial pacemaker has replaced Atrial fibrillation Referred By: Zain Buckley Electronically Signed By: CINDY BROWN
--- NOTE | 2024-09-23 09:35 | ECG_ITS ---
Test Reason : madi Blood Pressure : */* mmHG Vent. Rate : 56 BPM Atrial Rate : * BPM P-R Int : * ms QRS Dur : 168 ms QT Int : 470 ms P-R-T Axes : * -76 21 degrees QTcB Int : 453 ms Atrial fibrillation with slow ventricular response Right bundle branch block Left anterior fascicular block Bifascicular block Abnormal ECG When compared with ECG of 22-Sep-2024 07:07, No significant change was found Referred By: Cindy Brown Electronically Signed By: CINDY BROWN
--- NOTE | 2024-09-23 09:38 | P.HPHOSP_ITS ---
History of Present Illness Date of Service: 09/23/24 Chief Complaint: syncope 89 yo M with a PMH of HTN, HLD, A. fib on OAC but not on rate control drugs who presnted to [facility] ED on 09/22 after what appears to be a presyncopal episode. He reports he was at [facility] picking up 40-50lbs bags of mulch and shortly thereafter, while driving his car, he felt 'things go black' and he thought I am going to . He says subsequent to this, he slowly improved and eventually came to the ED himself. He denies any true LOC. In the ED, patient was evaluated by cardiology and deemed to have A. fib with slow ventricular response. Plan was for transfer to [facility] for EP evaluation and PPM placement. Unfortunately, [facility] has no beds available and hence, the pt will be at [facility] for further treamtent. Pt seen and examined in the ED around 930AM. He is resting comfortably. HR has been as low as 40s. Reports he had breakfast this AM, around 7am. Review of Systems 2 Review of Systems: Negative except HPI/interval history. [facility] Medical History (Updated 09/22/24 @ 17:05 by Jon Holloway MD) Stroke HTN (hypertension) Family History (Updated 09/22/24 @ 09:19 by James Mcintosh MD) Father No problems noted. Mother No problems noted. Social History (Updated 10/30/20 @ 12:08 by Brandi Mendez DO) Alcohol intake: current Alcohol intake frequency: a few times a month Patient Tobacco Use Status: Never used Tobacco Smoked in Last 30 Days: No Use of substances other than those prescribed or required for medical reasons: No Advance Directives: No Advance Directives Information Provided: Yes Do you have a plan to hurt others: No Plan Meds Allergies Allergy/AdvReac Type Severity Reaction Status Date / Time No Known Allergies (No Known Allergy Unverified 09/22/24 06:59 Allergies*) Active Medications: Current Medications Acetaminophen (Acetaminophen 325 Mg Tablet) 650 mg PO Q6H PRN PRN Reason: Pain, Mild 1-3,fever,headache Atorvastatin Calcium (Atorvastatin Calcium 40 Mg Tablet) 40 mg PO BEDTIME GRABIEL Last Admin: 09/22/24 23:49 Dose: 40 mg Calcium Carbonate (Calcium Carbonate 750 Mg Tab.Chew) 750 mg PO Q4H PRN PRN Reason: Heartburn Levothyroxine Sodium (Levothyroxine Sodium 50 Mcg Tablet) 50 mcg PO DAILY GRABIEL Last Admin: 09/23/24 09:37 Dose: Not Given Lisinopril (Lisinopril 20 Mg Tablet) 20 mg PO BEDTIME GRABIEL; Protocol Last Admin: 09/22/24 23:50 Dose: Not Given Magnesium Hydroxide (Milk Of Magnesia 30 Ml Oral.Susp) 30 ml PO DAILY PRN PRN Reason: Constipation Melatonin (Melatonin 3 Mg Tablet) 6 mg PO BEDTIME PRN PRN Reason: Insomnia Ondansetron HCl (Ondansetron Hcl 4 Mg/2 Ml Vial) 4 mg IVPUSH Q8H PRN PRN Reason: Nausea and Vomiting Sodium Chloride (0.9 % Sodium Chloride Flush 3 Ml Syringe) 3 ml IVFLUSH QSHIFT [facility] Physical Exam 2 Vital Signs and Narrative: Vital Signs: Last Vital Signs Temp 98.2 F 09/23/24 06:00 Pulse 52 09/23/24 06:00 Resp 15 09/23/24 06:00 BP 108/72 09/23/24 06:00 Pulse Ox 98 09/23/24 06:00 O2 Del Method Room Air 09/23/24 06:00 BMI result Body Mass Index 36.9 Const: Other: Constitutional - Awake and Alert, No apparent distress Eyes - PERRLA, EOMI Cardiovascular - S1S2, IRR, in the 40s-60s on monitor Respiratory - Normal lung expansion, Normal respiratory effort, No respiratory distress, CTA bilaterally Gastrointestinal - NT / ND; +BS; No rebound or guarding - No CVA tenderness Extremities - no calf tenderness bilaterally, no swelling Musculoskeletal - Normal inspection, normal ROM Skin - Warm/Dry Neurological - Alert & oriented x3, No focal deficit Psychological - Appropriate affect Results Labs 09/22/24 07:28 09/22/24 07:27 Labs: Laboratory Results - last 24 hr 09/22/24 07:27 B-Natriuretic Peptide 490 H Imaging Radiologist's Impressions: Impressions Chest X-Ray 09/22/24 06:39 IMPRESSION: No acute cardiopulmonary process. Electronically signed by: Nelida Arredondo MD 09/22/2024 07:48 AM EDT Assessment and Plan (1) Atrial fibrillation with slow ventricular response: Status: Acute Plan 89 yo M with HTN, HLD, CVA, A. fib on OAC but not rate control drugs who presents with a presyncopal episode. Found to have a. fib with slow ventricular response. Will be admitted for further treatment. 1. Presyncope due to A. fib slow ventricular response Cardiology on board -- plan for PPM today NPO (had breakfast this AM) hold eliquis 2. HTN lisinopril 3. HLD statin 4. Hypothyroidism synthroid Full Code DVt pptx - eliquis after procedure Pt with bradycardia leading to near syncope requiring PPM, thefeore expected to require at least 2 midnights in the hospital for mgmt. Hence, will be admitted as inpt. Quality Stroke Does the patient have a stroke diagnosis?: No VTE Prior VTE?: No VTE Risk Level:: Medical - moderate - high VTE Device Contraindication: N/A - Device Ordered VTE Drug Contraindication: N/A - Med Ordered
--- NOTE | 2024-09-23 09:48 | PC.NURSE ---
Updated EKG completed per Electrical Engineering Intern Dr. Mcintosh. EKG sent to Dr. Mcintosh via [employer] with read receipt noted. No new orders received at this time.
--- NOTE | 2024-09-23 10:41 | P.PNCA_ITS ---
Subjective Subjective Date of Service: 09/23/24 Interval history: seen in follow up. He states he is feeling okay. No new complaints. Has not had any presyncopal episodes or syncopal episodes while in the ER. Review of Systems Review of Systems Yes all other systems are reviewed and are negative Constitutional: Reports as per HPI and Reports no additional constitutional complaints Eyes: Reports as per HPI and Denies no additional eye complaints Denies system reviewed and no additional complaints, except as documented and Reports as per HPI Cardiovascular: Reports as per HPI, Reports no additional cardiovascular complaints, Denies acrocyanosis, Denies cool extremities, Denies chest pain, Denies leg edema, Denies lightheadedness, Denies palpitations and Denies dyspnea Respiratory: Reports as per HPI, Denies no additional respiratory complaints and Denies dyspnea Gastrointestinal: Reports as per HPI and Denies no additional gastrointestinal complaints Genitourinary: Reports no additional male genitourinary complaints and Reports as per HPI Musculoskeletal: Reports no additional musculoskeletal complaints and Reports as per HPI Skin/Breast: Reports system reviewed and no additional complaints, except as docu Reports system reviewed and no additional complaints, except as documented and Reports as per HPI Psychiatric: Reports no additional psychiatric complaints and Reports as per HPI Endocrine: Reports no additional endocrine complaints, Reports as per HPI and Denies palpitations Hematologic/Lymphatic: Reports no additional hematologic/lymphatic complaints and Reports as per HPI Allergic/Immunologic: Reports no additional allergic/immunologic complaints and Reports as per HPI Physical Exam Vital Signs: Last Vital Signs Temp 98.1 F 09/23/24 10:05 Pulse 49 L 09/23/24 10:22 Resp 17 09/23/24 10:22 BP 136/53 L 09/23/24 10:22 Pulse Ox 97 09/23/24 10:22 O2 Del Method Room Air 09/23/24 10:22 BMI result Body Mass Index 36.9 Const General: comfortable and no acute distress Orientation/consciousness: patient oriented x3 HEENT Other: Unremarkable Head: Yes normal to inspection Neck Neck: Yes normal visual inspection Chest Chest palpation & inspection: normal inspection of the chest Resp Auscultation: clear to auscultation bilaterally Cardio Palpation: normal PMI Heart sounds: S1 normal heart sound present, S2 normal heart sound present, no gallops, no murmurs and no rubs GI Palpation (GI): Soft to palpation Back/Spine/Pelvis Other: unremarkable Skin General skin exam: no rashes or lesions noted Neuro General: patient oriented x3 Extrem General: Yes normal to inspection Psych Mental Status: mental status grossly normal Objective Labs and Meds 09/22/24 07:28 09/22/24 07:27 Imaging Radiologist's impression: Impressions Chest X-Ray 09/22/24 06:39 IMPRESSION: No acute cardiopulmonary process. Electronically signed by: Nelida Arredondo MD 09/22/2024 07:48 AM EDT RP Progress Note: A&P Assessment and plan (1) Atrial fibrillation with slow ventricular response: Status: Acute (2) Bifascicular block: Status: Acute (3) Pre-syncope: Status: Acute Plan High sensitivity troponin within range. Cardiac BNP at 490. In the echocardiogram, LVEF 57%. No significant valvular findings. Overall, probable atrial fibrillation with slow response leading to presyncopal episode in the setting of strenuous physical exertion. Discussed with electrophysiology. Plan for permanent pacemaker. He was supposed to be transferred to [facility] but there was no bed and hence the pacemaker will be performed here. Keep patient NPO. Hold Eliquis for now. Time Spent With Patient Time: Total time managing care of this patient today ____ minutes. Progress Note: Quality Stroke Does the patient have a stroke diagnosis?: No Procedures Date of Service Date of Service: 09/23/24
--- NOTE | 2024-09-23 10:56 | PC.NURSE ---
Call received from [facility] in [facility]. RN to RN report given. All questions answered to satisfaction. [facility] reports Pt will be picked up by [facility] staff around 1130.
--- NOTE | 2024-09-23 11:07 | PHA.MEDREC ---
Addendum entered by Galdino Mariee RPh 09/23/24 11:48: MED REC REVIEWED BY [facility] Original Note: Pharmacy Consult ? Medication Reconciliation Pharmacy has completed the medication reconciliation. Spoke with pt and he confirmed his medications. Pt states he has not been able to take his medications in about 2 days.
--- NOTE | 2024-09-23 12:24 | PM.CNCAR ---
History of Present Illness History of Present Illness Date of Service: 09/23/24 Requesting physician: James Mcintosh Chief complaint: Bradycardia Narrative: 89-year old male with medical history significant for atrial fibrillation, HTN, and bifascicular block presented to the ER c/o lightheadedness. He was noted to be in AF with a ventricular rate 30s - 40s. He denies recent episodes of cp or sob. Review of Systems Review of Systems: Yes all other systems are reviewed and are negative PMFSH Past Medical History Medical History (Updated 09/22/24 @ 17:05 by Jon Holloway MD) Stroke HTN (hypertension) Family History Family History (Updated 09/22/24 @ 09:19 by James Mcintosh MD) Father No problems noted. Mother No problems noted. Social History Social History (Updated 10/30/20 @ 12:08 by Brandi Mendez DO) Alcohol intake: current Alcohol intake frequency: a few times a month Patient Tobacco Use Status: Never used Tobacco Meds Allergies Allergy/AdvReac Type Severity Reaction Status Date / Time No Known Allergies (No Known Allergy Unverified 09/22/24 06:59 Allergies*) Active Medications: Current Medications Acetaminophen (Acetaminophen 325 Mg Tablet) 650 mg PO Q6H PRN PRN Reason: Pain, Mild 1-3,fever,headache Atorvastatin Calcium (Atorvastatin Calcium 40 Mg Tablet) 40 mg PO BEDTIME GRABIEL Last Admin: 09/22/24 23:49 Dose: 40 mg Calcium Carbonate (Calcium Carbonate 750 Mg Tab.Chew) 750 mg PO Q4H PRN PRN Reason: Heartburn Levothyroxine Sodium (Levothyroxine Sodium 50 Mcg Tablet) 50 mcg PO DAILY GRABIEL Last Admin: 09/23/24 09:37 Dose: Not Given Lisinopril (Lisinopril 20 Mg Tablet) 20 mg PO BEDTIME GRABIEL; Protocol Last Admin: 09/22/24 23:50 Dose: Not Given Magnesium Hydroxide (Milk Of Magnesia 30 Ml Oral.Susp) 30 ml PO DAILY PRN PRN Reason: Constipation Melatonin (Melatonin 3 Mg Tablet) 6 mg PO BEDTIME PRN PRN Reason: Insomnia Ondansetron HCl (Ondansetron Hcl 4 Mg/2 Ml Vial) 4 mg IVPUSH Q8H PRN PRN Reason: Nausea and Vomiting Sodium Chloride (0.9 % Sodium Chloride Flush 3 Ml Syringe) 3 ml IVFLUSH QSHIFT [facility] Home Medications ?Medication ?Instructions ?Recorded ?Confirmed ?Last Taken ?Type cholecalciferol (vitamin D3) 25 25 mcg PO DAILY 09/23/24 09/23/24 09/21/24 History mcg (1,000 unit) tablet (Vitamin D3) levothyroxine 50 mcg tablet 50 mcg PO DAILY@0600 09/23/24 09/23/24 09/21/24 History ramipril 5 mg capsule 5 mg PO DAILY 09/23/24 09/23/24 09/21/24 History simvastatin 40 mg tablet 40 mg PO DAILY@1630 09/23/24 09/23/24 09/21/24 History Physical Exam Vital Signs: Vital Signs: Last Vital Signs Temp 97.8 F 09/23/24 12:04 Pulse 52 09/23/24 12:04 Resp 16 09/23/24 12:04 BP 161/75 H 09/23/24 12:04 Pulse Ox 98 09/23/24 12:04 O2 Del Method Room Air 09/23/24 12:04 BMI result Body Mass Index 36.9 Const: General: comfortable Orientation/consciousness: patient oriented x3 HEENT: Head: Yes atraumatic Eyes: Alignment and Position: position normal Neck: Neck: Yes supple Resp: Effort & Inspection: normal respiratory effort Cardio: Rate: regular rate Rhythm: regular rhythm GI: Inspection: Yes normal to inspection Neuro: General: patient oriented x3 Extrem: General: Yes no pedal edema Psych: Appearance: grossly normal Objective Labs and Meds 09/22/24 07:28 09/22/24 07:27 Imaging Radiologist's impression: Impressions Chest X-Ray 09/22/24 06:39 IMPRESSION: No acute cardiopulmonary process. Electronically signed by: Nelida Arredondo MD 09/22/2024 07:48 AM EDT RP Assessment and Plan (1) Atrial fibrillation with slow ventricular response: Status: Acute (2) Bifascicular block: Status: Acute Plan EKGs, labs, and TTE results reviewed. 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 Risks, benefits, and alternatives of PPM implantation discussed with the pt. We mutually decided to proceed w/ DC PPM implantation. Total time managing care of this patient today: 55 minutes. Procedures Date of Service Date of Service: 09/23/24
--- NOTE | 2024-09-23 15:12 | W.PM.OPN ---
Operative Note Operative Note Date of Service: 09/23/24 Narrative: Indication: High grade AV block Atrial fibrillation Summary: 1. Implantation of dual chamber Medtronic pacemaker (CPT 36433) 2. Moderate sedation provided by ma for 90 minutes (CPT 25251, [id number] [phone]) Narrative: Patient presented to the EP lab in a fasting, nonsedated state after written informed consent was verified. The procedure was performed under moderate sedation provided by ma. 2g IV Ancef was administered prior to skin incision. The patient was prepped and draped in the usual sterile manner. A 1-inch incision was made in the left subclavicular region. A pacemaker pocket was created using a combination of electrocautery and blunt dissection. After a LUE venogram two separate subclavian accesses were obtained with a micropuncture needle. A 7-Fr sheath was advanced over one of the guidewires. The RV pacing lead was advanced to the apical septal region. The helix was extended in the usual manner. Pacing parameters (injury, capture threshold, impedance, and sensing) were checked to be within the optimal range. Adequate slack was confirmed on the lead. The 7-Fr sheath was slit. The stylet was removed. The lead was secured to the underlying pectoralis muscle using two 0-Ethibond sutures. A 7-Fr sheath was advanced over the remaining guidewire. The atrial pacing lead was advanced to the EMMANUEL using a combination of straight and curved stylets. The helix was extended in the usual manner. Pacing parameters were checked to be suboptimal. The helix was retracted. The lead was positioned more laterally within the RA. The helix was extended. Pacing parameters (injury, capture threshold, impedance, and sensing) were checked to be within the optimal range. Adequate slack was confirmed on the lead. The 7-Fr sheath was slit. The stylet was removed. The lead was secured to the underlying pectoralis muscle using two 0-Ethibond sutures. The pacemaker generator was brought to the field. The leads were inserted into the respective ports of the generator. The leads were secured in the header using the provided torque wrench. The pocket was flushed with an antibiotic irrigant. Any bleeders within the pocket were controlled with electrocautery. The leads were wrapped underneath the new generator and the pacemaker was placed back within the pocket. The pocket was closed in three layers using 2-0 followed by 4-0 V-Loc. Dermabond was applied over the incision site. Gauze and tegaderm dressing were then placed over the incision site. Patient was then transported back to recovery in a stable condition. Recommendations: 1. CXR and EKG now. 2. Device interrogation in am. 3. Resume DOAC on 09/25/24 evening. 4. Wear left arm sling continuously for 24 hours. Then wear it only when sleeping for 2 weeks. 5. No raising left arm above shoulder level or reaching behind the back with left arm for 4 weeks. No driving for 2 weeks. 6. Keep chest incision site dry for 7 days. 7. Remove the gauze and Tegaderm dressing after 3 days. 8. Follow up in clinic in 1-2 weeks for incision site check. 9. Discharge home tomorrow if patient remains stable. Procedure start: 1:15 PM Procedure end: 2:50 PM
[2024-09-23] MEDS: 0.9 % Sodium Chloride Flush 3 ML SYRINGE IVFLUSH (23:45)
[2024-09-24] VITALS: BP 142/68; PULSE 60; RESP 18; TEMP 37.1; O2SAT 94
[2024-09-24 04:00] VITALS: BP 129/67; PULSE 60; RESP 16; TEMP 36.8; O2SAT 95
[2024-09-24 07:07] VITALS: BP 162/73; PULSE 62; RESP 18; TEMP 36.6; O2SAT 96
[2024-09-24 07:30] LABS: Hematocrit 44.6 % (42.0-52.0); Hemoglobin 15.2 g/dl (14.0-18.0); Mean Corpuscular HGB Conc 34.1 g/dl (31.0-36.0); Mean Corpuscular Hemoglobin 31.7 pg (27.0-33.0); Mean Corpuscular Volume 93.1 fL (80.0-98.0); NRBC Abs Auto 0.000 X10*3/uL (0.0-0.012); NRBC Pct Auto 0.0 /100WBC (0.0-0.2); Platelet Count 130 X10*3/uL (160-400); Red Blood Count 4.79 X10*6/uL (4.60-5.80); White Blood Count 7.0 X10*3/uL (4.8-10.8)
[2024-09-24 07:40] LABS: Anion Gap 12 (12-20); Blood Urea Nitrogen 15 mg/dL (9-16); Calcium 9.0 mg/dL (8.4-10.2); Carbon Dioxide 26 mmol/L (22-29); Chloride 106 mmol/L (96-108); Creatinine Clr Calc Pharmacy 81.2; Estimated Glomerular Filt Rate > 60; Potassium 4.3 mmol/L (3.3-5.1); Sodium 140 mmol/L (135-145)
[2024-09-24] MEDS: 0.9 % Sodium Chloride Flush 3 ML SYRINGE IVFLUSH (08:07)
--- NOTE | 2024-09-24 09:20 | PM.PNCARD ---
Subjective Subjective Date of Service: 09/24/24 Interval history: Patient underwent permanent pacemaker as today. He states he feels fine. Review of Systems Review of Systems Yes all other systems are reviewed and are negative Constitutional: Reports as per HPI and Reports no additional constitutional complaints Eyes: Reports as per HPI and Denies no additional eye complaints Denies system reviewed and no additional complaints, except as documented and Reports as per HPI Cardiovascular: Reports as per HPI, Reports no additional cardiovascular complaints, Denies acrocyanosis, Denies cool extremities, Denies chest pain, Denies leg edema, Denies lightheadedness, Denies palpitations and Denies dyspnea Respiratory: Reports as per HPI, Denies no additional respiratory complaints and Denies dyspnea Gastrointestinal: Reports as per HPI and Denies no additional gastrointestinal complaints Genitourinary: Reports no additional male genitourinary complaints and Reports as per HPI Musculoskeletal: Reports no additional musculoskeletal complaints and Reports as per HPI Skin/Breast: Reports system reviewed and no additional complaints, except as docu Reports system reviewed and no additional complaints, except as documented and Reports as per HPI Psychiatric: Reports no additional psychiatric complaints and Reports as per HPI Endocrine: Reports no additional endocrine complaints, Reports as per HPI and Denies palpitations Hematologic/Lymphatic: Reports no additional hematologic/lymphatic complaints and Reports as per HPI Allergic/Immunologic: Reports no additional allergic/immunologic complaints and Reports as per HPI Physical Exam Vital Signs: Last Vital Signs Temp 97.9 F 09/24/24 07:07 Pulse 62 09/24/24 07:07 Resp 18 09/24/24 07:07 BP 162/73 H 09/24/24 07:07 Pulse Ox 96 09/24/24 07:07 O2 Del Method Room Air 09/24/24 07:07 O2 Flow Rate 2 09/23/24 14:40 BMI result Body Mass Index 37.7 Const General: comfortable and no acute distress Orientation/consciousness: patient oriented x3 HEENT Other: Unremarkable Head: Yes normal to inspection Neck Neck: Yes normal visual inspection Chest Chest palpation & inspection: normal inspection of the chest Resp Auscultation: clear to auscultation bilaterally Cardio Palpation: normal PMI Heart sounds: S1 normal heart sound present, S2 normal heart sound present, no gallops, no murmurs and no rubs GI Palpation (GI): Soft to palpation Back/Spine/Pelvis Other: unremarkable Skin General skin exam: no rashes or lesions noted Neuro General: patient oriented x3 Extrem General: Yes normal to inspection Psych Mental Status: mental status grossly normal Objective Labs and Meds 09/24/24 06:58 09/24/24 06:58 Lab results: Laboratory Results - last 24 hr 09/24/24 06:58 WBC 7.0 RBC 4.79 Hgb 15.2 Hct 44.6 MCV 93.1 MCH 31.7 MCHC 34.1 RDW 13.2 Plt Count 130 L MPV 10.0 Absolute Nucleated RBC 0.000 Nucleated RBC % (auto) 0.0 Sodium 140 Potassium 4.3 Chloride 106 Carbon Dioxide 26 Anion Gap 12 BUN 15 Creatinine 0.87 Estim Creat Clear Calc 81.2 Estimated GFR > 60 Random Glucose 89 Calcium 9.0 Imaging Radiologist's impression: Impressions Chest X-Ray 09/23/24 14:48 IMPRESSION: 1. Placement of left-sided dual-lead pacer. No pneumothorax. 2. Mild cardiac enlargement. 3. No active pulmonary disease. Electronically signed by: Amandeep Borges MD 09/23/2024 04:01 PM EDT Progress Note: A&P Assessment and plan (1) Atrial fibrillation with slow ventricular response: Status: Acute (2) Bifascicular block: Status: Acute (3) Pre-syncope: Status: Acute Plan He presented with atrial fibrillation slow ventricular response but then converted to sinus rhythm in the hospital. Underwent permanent pacemaker as today successfully. Checked today and with normal function. Discussed with EP about this. We will start him on some metoprolol to keep him in sinus rhythm. May resume anticoagulation. Usual pacemaker precautions. With regard to blood pressure, may need some adjustments in clinic but okay to just use home medication for now. Additional beta-blockers as above should help. We will follow up in clinic. Time Spent With Patient Time: Total time managing care of this patient today ____ minutes. Progress Note: Quality Stroke Does the patient have a stroke diagnosis?: No Procedures Date of Service Date of Service: 09/24/24
[2024-09-24 10:00] VITALS: BP 154/78; PULSE 80; RESP 18; TEMP 36.4; O2SAT 96
--- NOTE | 2024-09-24 10:52 | MHC.CM.PN ---
IMM 09/24/24, EMR REVIEWED, PT W/BRADYCARDIA, CM MET W/PT WHO REPORTS HE LIVES ALONE, IS FULLY INDEP W/ALL CARE, DRIVES, DENIES USE OF DME/SERVICES AND GOAL FOR DC IS HOME TODAY W/MEDS FILLED AT [facility]. PCP VERIFIED SCOTTIE OLEARY MD, PT REPORTS DTR/MELITON #ON FILE IS HCP, COPY REQUESTED. PT TO DC TODAY HOME SELF CARE W/PT'S SON FOR TRANSPORT.
[2024-09-24 11:09] VITALS: BP 140/67; PULSE 60; RESP 17; TEMP 36.3; O2SAT 95
--- NOTE | 2024-09-24 12:44 | P.DS_ITS ---
DS: Providers Provider Date of Service: 09/24/24 Date of admission: 09/23/24 09:12 Date of discharge: 09/24/24 Primary care physician: Unknown Physician Consults: 09/22/24 08:57 Consult to Cardiology Stat Consulting Provider: [facility] Reason for consultation: near syncope, slow afib DS: Diagnosis Discharge Diagnosis (1) Atrial fibrillation with slow ventricular response: Status: Acute (2) Bifascicular block: Status: Acute (3) Pre-syncope: Status: Acute DS: Summary Hospital Course Hospital Course: From admission HPI: Date of Service: 09/23/24 Chief Complaint: syncope 89 yo M with a PMH of HTN, HLD, A. fib on OAC but not on rate control drugs who presnted to [facility] ED on 09/22 after what appears to be a presyncopal episode. He reports he was at [facility] picking up 40-50lbs bags of mulch and shortly thereafter, while driving his car, he felt 'things go black' and he thought I am going to . He says subsequent to this, he slowly improved and eventually came to the ED himself. He denies any true LOC. In the ED, patient was evaluated by cardiology and deemed to have A. fib with slow ventricular response. [place] [facility] and [place]. Unfortunately, [facility] [place] and hence, the pt will be at [facility] for further treamtent. Pt seen and examined in the ED around 930AM. He is resting comfortably. HR has been as low as 40s. Reports he had breakfast this AM, around 7am. Hospital course: Pt was admitted to the hospital for symptomatic AFib with slow ventricular response. Pt underwent successful implantation of dual-chamber Medtronic pacemaker in the afternoon of 09/23/2024. Procedure was without complication. Pt tolerated the well, and today reports he feels great and without any acute medical complaints. No lightheadedness or dizziness. No fatigue. Denies chest pain/pressure or palpitations. Ate a full diet. Pt will be discharged home on metoprolol ER 50 mg daily. Should follow up with Cardiology in 1-2 weeks. Detailed pacemaker precautions listed below: 1. Resume Eliquis on the evening of 09/25/24. 2. Wear left arm sling continuously for 24 hours. Then wear it only when sleeping for 2 weeks. 3. No raising left arm above shoulder level or reaching behind the back with left arm for 4 weeks. No driving for 2 weeks. 4. Keep chest incision site dry for 7 days. 5. Remove the gauze and Tegaderm dressing after 3 days. 6. Follow up in [facility] clinic in 1-2 weeks for incision site check. For hypothyroidism continue levothyroxine. For HTN continue ramipril, and start metoprolol. For HLD continue. Time Attestation Discharge Coordination Time (in mins): 35 Quality: Safe Use of Opioids Does Pt have an Active Cancer Diagnosis on the Problem List?: No Quality: Stroke Does the patient have a stroke diagnosis?: No Physical Exam Vital Signs: Vital Signs: Last Vital Signs Temp 97.4 F 09/24/24 11:09 Pulse 60 09/24/24 11:09 Resp 17 09/24/24 11:09 BP 140/67 H 09/24/24 11:09 Pulse Ox 95 09/24/24 11:09 O2 Del Method Room Air 09/24/24 11:09 O2 Flow Rate 2 09/23/24 14:40 BMI result Body Mass Index 37.7 General: AOx3, no acute distress. Resting comfortably in bed Resp: CTA bilaterally CVS: S1, S2, RRR Chest: Clean dressing in place on left-sided anterior chest wall GI: +BS, NT, no distention Skin: Warm, dry Neuro: Cranial nerves II-XII grossly intact bilaterally. Motor grossly intact bilaterally Extremities: No edema. Left arm in sling Psych: Appropriate affect DS: Data Data Completed and Pending Labs on day of discharge: Laboratory Results - last 24 hr 09/24/24 06:58 WBC 7.0 RBC 4.79 Hgb 15.2 Hct 44.6 MCV 93.1 MCH 31.7 MCHC 34.1 RDW 13.2 Plt Count 130 L MPV 10.0 Absolute Nucleated RBC 0.000 Nucleated RBC % (auto) 0.0 Sodium 140 Potassium 4.3 Chloride 106 Carbon Dioxide 26 Anion Gap 12 BUN 15 Creatinine 0.87 Estim Creat Clear Calc 81.2 Estimated GFR > 60 Random Glucose 89 Calcium 9.0 Discharge Plan Discharge Anticipated Discharge Date/Time: 09/24/24 12:30 Patient Disposition: Home, Self-Care Discharge Diagnosis: AFib with slow ventricular response Referrals: Primo Chicas MD [Primary Care Provider, Internal Medicine] - 1 Week James Mcintosh MD [Physician, Cardiology] - 1 Week Referral Note: Follow up for pacemaker placement on 09/23 Discharge Medications: New metoprolol succinate 50 mg tablet extended release 24 hr 50 mg PO DAILY Qty: 90 0RF Rx Instructions: Take one tablet daily for AFib Continued Eliquis 5 mg tablet 5 mg PO BID Qty: 60 0RF simvastatin 40 mg tablet 40 mg PO DAILY@1630 levothyroxine 50 mcg tablet 50 mcg PO DAILY@0600 ramipril 5 mg capsule 5 mg PO DAILY cholecalciferol (vitamin D3) [Vitamin D3] 25 mcg (1,000 unit) Tablet 25 mcg PO DAILY Discharge Orders: Discharge Order (Routine); Ordered 09/24/24 Ordered By: Bob Childers Activity on Discharge: As tolerated Stand Alone Forms: Patient Portal Discharge page Print Language: Lithuanian Care Plan Goals: See below Health Concerns: Afib with slow ventricular response Plan of Treatment: You were admitted to the hospital for atrial fibrillation with slow ventricular response of HR 30-40s. You underwent implantation of dual chamber Medtronic pacemaker on the afternoon of 09/23. Pacemaker precautions: 1. Wear left arm sling continuously for 24 hours. Then wear it only when sleeping for 2 weeks. 2. No raising left arm above shoulder level or reaching behind the back with left arm for 4 weeks. No driving for 2 weeks. 3. Resume Eliquis on the evening of 09/25/24. 4. Keep chest incision site dry for 7 days. 5. Remove the gauze and Tegaderm dressing after 3 days. 6. Follow up in clinic in 1-2 weeks for incision site check. You are also being prescribed metoprolol 50 mg ER daily to help maintain normal sinus rhythm Follow up with PCP in 1 week for routine hospitalization follow up Follow up with Cardiology in 1-2 weeks Assessment: See discharge summary Discharge Date/Time: 09/24/24 13:37
== END 2024-09-24 13:37 | disposition home or self-care (01) | DRG 244 ==
LOC: HO.ED 09-23 08:10 → HO.EDOVER 09-23 09:33 → HO.IMC 09-23 17:48
PROVIDERS: Family Medicine; Student in an Organized Health Care Education/Training Program; Admitting Provider Internal Medicine; Emergency Provider Emergency Medicine; PCP Family Medicine; Visit Provider Student in an Organized Health Care Education/Training Program
PROC: 0JH606Z Insertion of Pacemaker, Dual Chamber into Chest Subcutaneous Tissue and Fascia, Open Approach (ICD-10-PCS; principal; 2024-09-23 12:30)
DX: I45.2 Bifascicular block (principal); I48.91 Unspecified atrial fibrillation; I10 Essential (primary) hypertension; E78.5 Hyperlipidemia, unspecified; E03.9 Hypothyroidism, unspecified; Z87.891 Personal history of nicotine dependence; Z79.01 Long term (current) use of anticoagulants; Z79.890 Hormone replacement therapy; Z79.899 Other long term (current) drug therapy
CPT/HCPCS: 33208; 36415; 71045; 80048; 80076; 81001; 83880; 84484; 85025; 85027; 85610; 93005; 93306; 99152; 99153; 99285; C1785; C1892; C1894; C1898; J0690; J2003; J2250; J2312; J3010; J3374; Q9957; Q9967

== ENCOUNTER → 2024-09-22 07:01 | Outpatient (BNV) | payer MEDICARE, BC, SELFPAY | PROVIDERS: Visit Provider Radiology Body Imaging | DX: R42 Dizziness and giddiness (principal) | CPT/HCPCS: 71045 ==

== ENCOUNTER → 2024-09-22 07:19 | Outpatient (BNV) | payer MEDICARE, BC, SELFPAY | PROVIDERS: Emergency Provider Emergency Medicine; Visit Provider Internal Medicine | DX: I48.91 Unspecified atrial fibrillation (principal); I45.2 Bifascicular block; R55 Syncope and collapse; I37.1 Nonrheumatic pulmonary valve insufficiency; I51.7 Cardiomegaly | CPT/HCPCS: 93010; 93306; 99223 ==

== ENCOUNTER 2024-09-23 09:12 | Outpatient (BNV) | payer MEDICARE, BC, SELFPAY | END 2024-09-23 14:48 | PROVIDERS: Admitting Provider Internal Medicine; Emergency Provider Emergency Medicine; Visit Provider Radiology Diagnostic Radiology | DX: I51.7 Cardiomegaly (principal) | CPT/HCPCS: 71045 ==

== ENCOUNTER 2024-09-23 09:12 | Outpatient (BNV) | payer MEDICARE, BC, SELFPAY | END 2024-09-23 09:35 | PROVIDERS: Admitting Provider Internal Medicine; Emergency Provider Emergency Medicine; Visit Provider Internal Medicine | DX: I45.10 Unspecified right bundle-branch block (principal); I45.4 Nonspecific intraventricular block; Z95.0 Presence of cardiac pacemaker; I48.91 Unspecified atrial fibrillation; I45.2 Bifascicular block | CPT/HCPCS: 93010 ==

== ENCOUNTER → 2024-09-23 09:12 | Outpatient (BNV) | payer MEDICARE, BC, SELFPAY | PROVIDERS: Admitting Provider Internal Medicine; Emergency Provider Emergency Medicine; Visit Provider Family Medicine | DX: I48.91 Unspecified atrial fibrillation (principal); I45.2 Bifascicular block; R55 Syncope and collapse | CPT/HCPCS: 99223; 99239 ==

== ENCOUNTER 2024-10-01 10:21 | Outpatient (AMB) | payer MEDICARE, BC, SELFPAY ==
--- NOTE | 2024-10-01 10:37 | MHC.OFFVIS ---
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 Required: No Accompanied by: Self / Same As Patient Allergies No Known Allergies (No Known Allergies*) Allergy (Unverified 09/22/24 06:59) Medication List - Last Reconciled 10/01/24 by Maribel May NP-C apixaban (Eliquis) 5 mg PO BID cholecalciferol (vitamin D3) (Vitamin D3) 25 mcg PO DAILY levothyroxine 50 mcg PO DAILY@0600 metoprolol succinate ER 50 mg PO DAILY ramipril 5 mg PO DAILY simvastatin 40 mg PO DAILY@1630 HPI HPI wound ck: Details: Jerman is an 89-year-old male with past medical history of paroxysmal atrial fibrillation who recently presented to [facility] following presyncopal event. He was noted to have AFib with slow ventricular response, right bundle branch block. He ultimately underwent pacemaker insertion and now presents for follow-up. Today he reports he has been feeling good since his hospital discharge. He has no discomfort from his pacemaker site. He has not had any recurrent presyncopal events. He has no chest discomfort, shortness of breath, lightheadedness. He reports good activity tolerance. He remains physically active and is asking about going to [place] in October. Compliant with his meds. No bleeding issues with Eliquis. Has remote monitor at his bedside. [facility] Medical History Stroke HTN (hypertension) Family History Father No problems noted. Mother No problems noted. Social History Household Members: None Housing: House Do you presently have visiting nurse or other home services: No Alcohol intake: current Alcohol intake frequency: a few times a month Comment: refusing alarms Patient Tobacco Use Status: Former Tobacco user Tobacco use type: Cigarette e-Cigarette/Vaping Use: Former Use service: No Review of Systems Const All systems reviewed & are unremarkable except as noted in HPI and below Denies chills, Denies fatigue, Denies fever(s), Denies frequent falls, Denies weakness, Denies weight gain and Denies weight loss ENT Denies dizziness Card Denies chest pain, Denies leg edema, Denies lightheadedness, Denies palpitations, Denies dyspnea and Denies dyspnea on exertion Resp Denies cough, Denies dyspnea and Denies dyspnea on exertion GI Denies hematochezia Musc Denies abnormal gait, Denies muscle weakness, Denies numbness, Denies radiating pain into limb and Denies tingling Neuro Denies abnormal gait, Denies dizziness, Denies frequent falls, Denies numbness, Denies tingling and Denies weakness Endo Denies fatigue and Denies palpitations Physical Exam Vital Signs: Last Vital Signs Pulse 63 10/01/24 10:38 BP 120/62 10/01/24 10:38 BMI result Body Mass Index 36.7 Const General: cooperative, healthy appearing, comfortable and no acute distress Orientation/consciousness: patient oriented x3 Neck Neck: Yes normal visual inspection Chest Other: Left upper chest pacer site intact with skin glue, mild swelling, resolving ecchimosis, no drainage or signs of infection. Resp Effort & Inspection: normal respiratory effort Auscultation: clear to auscultation bilaterally, no rales, no rhonchi and no wheezes Cardio Rate: regular rate Rhythm: regular rhythm Heart sounds: S1 normal heart sound present, S2 normal heart sound present, no gallops, no murmurs and no rubs Neuro General: patient oriented x3 Extrem Other: Chronic nonpitting leg edema Psych Appearance: grossly normal Mental Status: mental status grossly normal Speech and movement: Normal speech and movement present Assessment & Plan Assessment & Plan (1) Atrial fibrillation with slow ventricular response: Code(s): I48.91 - Unspecified atrial fibrillation Category: Medical Plan: History of paroxysmal atrial fibrillation with recent finding of AFib with slow ventricular response. Symptoms of presyncope leading to dual-chamber pacemaker insertion. Echocardiogram 09/22/2024 showed EF 57%, no valve abnormalities, left atrium mildly dilated. Last EKG done 09/23/2024 showed atrial paced rhythm with right bundle branch block, rate 60. Currently asymptomatic. Continue metoprolol for heart rate control. Continue Eliquis for anticoagulation. Dose of 5 mg b.i.d. is appropriate for his weight and creatinine. (2) Pre-syncope: Code(s): R55 - Syncope and collapse Category: Medical Plan: As above. No recurrent episodes since pacemaker placement. (3) Pacemaker: Comment: Medtronic dual-chamber pacemaker placement 09/23/2024 Code(s): Z95.0 - Presence of cardiac pacemaker Category: Medical Plan: Medtronic dual-chamber pacemaker in place. Has remote monitoring in use. Will arrange for office interrogation next visit. (4) Visit for wound check: Code(s): Z51.89 - Encounter for other specified aftercare Category: Medical Plan: Pacemaker site healing well with no signs of infection. Incision fully approximated. (5) Hospital discharge follow-up: Code(s): Z09 - Encounter for follow-up examination after completed treatment for conditions other than malignant neoplasm Category: Medical Plan: Discharge summary reviewed Plan Time spent on chart review, documentation, interview and assessment Coding Level of Care Code Est Pt Level 4 (57449) Complex EM visit Add On G2211 Diagnoses Atrial fibrillation with slow ventricular response I48.91 Pre-syncope R55 Pacemaker Z95.0 Visit for wound check Z51.89 Hospital discharge follow-up Z09 Time Spent (min) 32
[2024-10-01 10:38] VITALS: BP 120/62; PULSE 63; BMI 36.7
== END 2024-10-01 11:16 | disposition home or self-care (01) ==
LOC: HO.HCS 10:22
PROVIDERS: PCP Family Medicine; Visit Provider Nurse Practitioner Family
DX: I48.91 Unspecified atrial fibrillation (principal); R55 Syncope and collapse; Z95.0 Presence of cardiac pacemaker; Z51.89 Encounter for other specified aftercare; Z09 Encounter for follow-up examination after completed treatment for conditions other than malignant neoplasm
CPT/HCPCS: 99214; G2211

== ENCOUNTER → 2024-10-01 10:21 | Outpatient (BNVA) | payer MEDICARE, BC, SELFPAY | PROVIDERS: PCP Family Medicine; Visit Provider Nurse Practitioner Family | DX: Z51.89 Encounter for other specified aftercare (principal); Z95.0 Presence of cardiac pacemaker; R55 Syncope and collapse; I48.91 Unspecified atrial fibrillation; Z79.01 Long term (current) use of anticoagulants | CPT/HCPCS: 99212 ==

== ENCOUNTER → 2024-10-26 23:59 | Outpatient (BNV) | payer MEDICARE, BC, SELFPAY ==
--- NOTE | 2024-11-11 09:07 | A.OFFVIS_ITS ---
Intake Visit Reasons: Remote device check- Medtronic Allergies No Known Allergies (No Known Allergies*) Allergy (Unverified 09/22/24 06:59) PFSH Medical History Stroke HTN (hypertension) Family History Father No problems noted. Mother No problems noted. Social History Household Members: None Housing: House Do you presently have visiting nurse or other home services: No Alcohol intake: current Alcohol intake frequency: a few times a month Comment: refusing alarms Patient Tobacco Use Status: Former Tobacco user Tobacco use type: Cigarette e-Cigarette/Vaping Use: Former Use service: No Office Procedures Cardiac Device Check Cardiac Device Check Details: Date of service- 10/26/2024 ; Battery life >10 years; normal lead parameters; AP 59%; [employer] ASST 94%; AF burden 16%. Overall normal device function. [id number] Cardiac Device Interrogation, pacemaker Procedure code (CPT) selection complete Assessment & Plan Assessment & Plan (1) Pacemaker: Comment: Medtronic dual-chamber pacemaker placement 09/23/2024 Code(s): Z95.0 - Presence of cardiac pacemaker Category: Medical (2) Atrial fibrillation: Code(s): I48.91 - Unspecified atrial fibrillation Category: Medical Qualifiers: Atrial fibrillation type: unspecified Qualified Code(s): I48.91 - Unspecified atrial fibrillation Plan x Coding Level of Care Code Procedure Only Diagnoses Pacemaker Z95.0 Atrial fibrillation I48.91 Atrial fibrillation type: unspecified CPT Codes Cardiac Device Check - Cardiac Device 12: [id number] Cardiac Device Interrogation, pacemaker ([id number])
== END ==
PROVIDERS: PCP Family Medicine; Visit Provider Internal Medicine
DX: I48.91 Unspecified atrial fibrillation (principal); Z95.0 Presence of cardiac pacemaker
CPT/HCPCS: 93294

== ENCOUNTER 2024-11-16 14:16 | Outpatient (AMB) | payer MEDICARE, BC, SELFPAY ==
[2024-11-16 14:42] VITALS: BP 126/60; PULSE 59; BMI 36.0
--- NOTE | 2024-11-16 14:42 | A.OFFVIS_ITS ---
Vital Signs 11/16/24 14:42 Height 6 ft 1 in Weight 272 lb 14.916 oz BMI 36.0 BP 126/60 Blood Pressure Location Lt brachial Position Sitting Pulse 59 Pulse Source Pulse Oximeter Intake Visit Reasons: 2m follow up w device ck Accompanied by: Self / Same As Patient Allergies No Known Allergies (No Known Allergies*) Allergy (Verified 11/16/24 14:45) Medication List - Last Reconciled 11/16/24 by Maribel May NP-C apixaban (Eliquis) 5 mg PO BID cholecalciferol (vitamin D3) (Vitamin D3) 25 mcg PO DAILY levothyroxine 50 mcg PO DAILY@0600 metoprolol succinate ER 50 mg PO DAILY ramipril 5 mg PO DAILY simvastatin 40 mg PO DAILY@1630 HPI HPI 2m follow up w device ck: Details: Jerman is an 89-year-old male with past medical history of right bundle branch block, paroxysmal atrial fibrillation, 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 Today he reports he has been feeling well since his last visit in September. He has no discomfort from his pacemaker site. No lightheadedness, presyncope, syncope. He has no chest discomfort, shortness of breath. He has chronic swelling in his lower extremities which is unchanged. He reports good activity tolerance. Compliant with his meds. No bleeding issues with Eliquis. Has remote monitor at his bedside. [facility] Medical History Stroke HTN (hypertension) Family History Father No problems noted. Mother No problems noted. Social History Household Members: None Housing: House Do you presently have visiting nurse or other home services: No Alcohol intake: current Alcohol intake frequency: a few times a month Comment: refusing alarms Patient Tobacco Use Status: Former Tobacco user Tobacco use type: Cigarette e-Cigarette/Vaping Use: Former Use service: No Review of Systems Const All systems reviewed & are unremarkable except as noted in HPI and below Denies daytime sleepiness, Denies difficulty sleeping, Denies snoring, Denies stops breathing during sleep and Denies weakness Card Denies chest pain, Denies rapid heart rate, Denies irregular heart rhythm, Denies claudication, Denies leg edema, Denies lightheadedness, Denies palpitations, Denies dyspnea, Denies dyspnea on exertion, Denies orthopnea, Denies paroxysmal nocturnal dyspnea and Denies slow heart rate Resp Denies cough, Denies dyspnea, Denies dyspnea on exertion and Denies snoring GI Reports no additional complaints, Denies hematochezia, Denies change in stool character and Denies dyspepsia Musc Denies abnormal gait, Denies muscle weakness and Denies numbness Neuro Denies abnormal gait, Denies numbness and Denies weakness Endo Denies palpitations Physical Exam Vital Signs: Last Vital Signs Pulse 59 11/16/24 14:42 BP 126/60 11/16/24 14:42 BMI result Body Mass Index 36.0 Const General: cooperative, healthy appearing, comfortable and no acute distress Orientation/consciousness: patient oriented x3 Neck Neck: Yes normal visual inspection Chest Other: pacer site well healed Chest palpation & inspection: normal inspection of the chest Resp Effort & Inspection: normal respiratory effort Auscultation: clear to auscultation bilaterally, no rales, no rhonchi and no wheezes Cardio Rate: regular rate Rhythm: regular rhythm Heart sounds: S1 normal heart sound present, S2 normal heart sound present, no gallops, no murmurs and no rubs Neuro General: patient oriented x3 Extrem Other: Chronic nonpitting leg edema Psych Appearance: grossly normal Mental Status: mental status grossly normal Speech and movement: Normal speech and movement present Office Procedures Cardiac Device Check Cardiac Device Check Details: Today, read by me, Medtronic dual-chamber pacemaker interrogation shows battery 10.5 years, DDD mode, low rate 60, acute phase turned off and changed to RA, RV outputs to 2.0 at 0.4, RA threshold 1 volt at 0.4 milliseconds, RV threshold 0.75 volts at 0.4 milliseconds, presenting rhythm a paced/V pace, rate 60, has had AT/AF episodes with longest 86 hours, total burden 16.3%, V paced 92.6%, a paced 57.8% [id number] Cardiac Device Check, pacemaker dual lead Procedure code (CPT) selection complete EKG Details: NO EKG done - do not bill this entry [id number], Complete Assessment & Plan Assessment & Plan (1) Atrial fibrillation with slow ventricular response: Code(s): I48.91 - Unspecified atrial fibrillation Category: Medical Plan: History of paroxysmal atrial fibrillation with recent finding of AFib with slow ventricular response, symptom of presyncope leading to dual-chamber pacemaker insertion. He is on metoprolol for heart rate control. He is on Eliquis for anticoagulation. Last Echocardiogram 09/22/2024 showed EF 57%, no valve abnormalities, left atrium mildly dilated. Last EKG done 09/23/2024 showed atrial paced rhythm with right bundle branch block, rate 60. Device interrogation today shows AF burden 16.3%. Will continue to follow frequency through remote monitoring. No med changes made at this time. (2) Pre-syncope: Code(s): R55 - Syncope and collapse Category: Medical Plan: As above. No recurrent episodes since pacemaker placement. (3) Pacemaker: Comment: Medtronic dual-chamber pacemaker placement 09/23/2024 Code(s): Z95.0 - Presence of cardiac pacemaker Category: Medical Plan: Medtronic dual-chamber pacemaker in place. Interrogation today shows it is functioning normally. Battery 10.5 years. Remote monitoring in use. Next office interrogation due in 6 months. Plan Time spent on chart review, documentation, interview and assessment Coding Level of Care Code Est Pt Level 4 (38247) Complex EM visit Add On G2211 Diagnoses Atrial fibrillation with slow ventricular response I48.91 Pre-syncope R55 Pacemaker Z95.0 CPT Codes Cardiac Device Check - Cardiac Device 2: [id number] Cardiac Device Check, pacemaker dual lead ([id number]) EKG - CPT: 44885-[id number], Complete ([id number]) Time Spent (min) 32
== END 2024-11-16 15:24 | disposition home or self-care (01) ==
LOC: HO.HCS 14:17
PROVIDERS: PCP Family Medicine; Visit Provider Nurse Practitioner Family
DX: I48.91 Unspecified atrial fibrillation (principal); R55 Syncope and collapse; Z95.0 Presence of cardiac pacemaker
CPT/HCPCS: 93010; 93280; 99214; G2211

== ENCOUNTER → 2024-11-16 14:16 | Outpatient (BNVA) | payer MEDICARE, BC, SELFPAY | PROVIDERS: PCP Family Medicine; Visit Provider Nurse Practitioner Family | DX: Z45.018 Encounter for adjustment and management of other part of cardiac pacemaker (principal); I48.0 Paroxysmal atrial fibrillation; R55 Syncope and collapse; Z79.01 Long term (current) use of anticoagulants; Z79.899 Other long term (current) drug therapy | CPT/HCPCS: 93005; 93280; 99212 ==

== ENCOUNTER → 2025-02-14 14:27 | Outpatient (BNV) | payer MEDICARE, BC, SELFPAY | PROVIDERS: PCP Family Medicine; Visit Provider Internal Medicine | DX: I48.91 Unspecified atrial fibrillation (principal); Z95.0 Presence of cardiac pacemaker | CPT/HCPCS: 93294 ==